=== PATIENT | female | born 1955 | race Caucasian/White ===

== ENCOUNTER → 2022-06-30 | Outpatient (CLI) | payer MEDICARE, OTHER, SELFPAY ==
[2022-07-03 10:54] LABS: HPV APTIMA, High Risk Negative (Negative)
== END | disposition home or self-care (01) ==
LOC: LABSPEC 11:14
PROVIDERS: Visit Provider Obstetrics & Gynecology
DX: Z12.4 Encounter for screening for malignant neoplasm of cervix (principal)
CPT/HCPCS: 87624; 88175; G0145

== ENCOUNTER → 2022-07-02 | Outpatient (CLI) | payer MEDICARE, OTHER, SELFPAY ==
--- NOTE | 2022-07-02 14:39 | BI_ITS ---
MAMMOGRAPHY - BILATERAL SCREENING REASON FOR EXAM: Female, 67 years old. Routine annual screening examination. PERTINENT HISTORY: Right excisional biopsy 10-15 years prior. No other pertinent history. TECHNIQUE: Digital bilateral breast abiodun (3D mammographic acquisition) in the CC and MLO projections. 2-D mediolateral oblique (MLO) and craniocaudad (CC) views of both breasts were obtained. CAD: Full Field Digital Mammography with Computer Added Detection was performed. COMPARISON: Screening mammogram from outside hospital from 02/16/2019, 01/26/2017. FINDINGS: Breast Composition: There are scattered areas of fibroglandular density. There are no dominant masses or suspicious calcifications. No other significant abnormalities are identified. There has been no significant change since the prior study. BI/SCRN MAMM (CAD)W/ABIODUN BILAT IMPRESSION: Stable bilateral screening mammogram. Yearly follow-up mammogram recommended. (A) ASSESSMENT CATEGORY: BIRADS Category 1: Negative. A letter regarding these results will be sent to the patient by the facility within 30 days. Approximately 10% of breast cancers are not detected by mammography. A normal mammogram should not delay biopsy of a clinically suspicious abnormality. Electronically Signed: Ugo Brown, at 9:15 EDT ,
--- NOTE | 2022-07-02 15:00 | BD_ITS ---
STUDY: DUAL ENERGY X-RAY ABSORPTIOMETRY / DXA REASON FOR EXAM: Female, 67 years old. Estrogen deficiency TECHNIQUE: Bone Mineral Density (BMD) measurements of lumbar spine and bilateral hips were obtained. COMPARISON: None. FINDINGS: Lumbar Spine (L1-L4): g/cm2 (1.148) / T-score (0.9) / Z-score (2.8) Findings are suggestive of normal bone density with a low fracture risk. Left Femur Total: g/cm2 (1.069) / T-score (1.0) / Z-score (2.4) Left Femoral Neck: g/cm2 (0.841) / T-score (-0.1) / Z-score (1.6) Right Femur Total: g/cm2 (1.133) / T-score (1.6) / Z-score (2.9) Right Femoral Neck: g/cm2 (0.946) / T-score (0.9) / Z-score (2.5) BD/Dexa Bone Density Study IMPRESSION: The patient is considered normal as outlined below according to World Mark Organization (WHO) criteria with a low fracture risk. Reference Information: The T-score is the number of standard deviations above or below the standard which is normal for young adults at their peak bone mineral density. The World Health Organization (WHO) interprets the T-scores as follows: Above -1 Normal bone density Between -1 and -2.5 Osteopenia Equal to / or below -2.5 Osteoporosis As a practical clinical guideline, osteopenia may be graded as follows: Mild -1 through -1.5 Moderate -1.6 through -2.0 Severe -2.1 through -2.4 The Z-score is the number of standard deviations above or below age-matched controls. A Z-score of less than -1.5 would be considered abnormal. References: 1. NIH Osteoporosis and Related Bone Diseases www osteo.org 2. International Society for Clinical Densitometry www iscd.org 3. National Osteoporosis Foundation www nof.org Electronically Signed: Cesar Oakley MD at 17:49 EDT ,
== END | disposition home or self-care (01) ==
LOC: OPBD 14:38
PROVIDERS: Visit Provider Obstetrics & Gynecology
DX: Z12.31 Encounter for screening mammogram for malignant neoplasm of breast (principal); E28.39 Other primary ovarian failure
CPT/HCPCS: 77063; 77067; 77080

== ENCOUNTER → 2023-07-08 | Outpatient (CLI) | payer MEDICARE, OTHER, SELFPAY | END | disposition home or self-care (01) | LOC: LABSPEC 13:27 | PROVIDERS: Referring Provider Obstetrics & Gynecology; Visit Provider Obstetrics & Gynecology | DX: R30.0 Dysuria (principal) | CPT/HCPCS: 87086 ==

== ENCOUNTER → 2023-07-12 | Outpatient (CLI) | payer MEDICARE, OTHER, SELFPAY ==
--- NOTE | 2023-07-12 09:51 | BI_ITS ---
MAMMOGRAPHY - BILATERAL SCREENING REASON FOR EXAM: Female, 68 years old. Routine annual screening examination. PERTINENT HISTORY: Right excisional biopsy 10-15 years prior. No other pertinent history. TECHNIQUE: Digital bilateral breast abiodun (3D mammographic acquisition) in the CC and MLO projections. 2-D mediolateral oblique (MLO) and craniocaudad (CC) views of both breasts were obtained. CAD: Full Field Digital Mammography with Computer Added Detection was performed. COMPARISON: Screening mammogram from 10/11/2022. FINDINGS: Breast Composition: There are scattered areas of fibroglandular density. There are no dominant masses or suspicious calcifications. No other significant abnormalities are identified. There has been no significant change since the prior study. BI/SCRN MAMM (CAD)W/ABIODUN BILAT IMPRESSION: Stable bilateral screening mammogram. Yearly follow-up mammogram recommended. (A) ASSESSMENT CATEGORY: BIRADS Category 1: Negative. A letter regarding these results will be sent to the patient by the facility within 30 days. Approximately 10% of breast cancers are not detected by mammography. A normal mammogram should not delay biopsy of a clinically suspicious abnormality. Electronically Signed: Ugo Brown DO at 12:02 EDT ,
== END | disposition home or self-care (01) ==
LOC: OPBI 09:47
PROVIDERS: PCP Family Medicine; Referring Provider Obstetrics & Gynecology; Visit Provider Obstetrics & Gynecology
DX: Z12.31 Encounter for screening mammogram for malignant neoplasm of breast (principal)
CPT/HCPCS: 77063; 77067

== ENCOUNTER → 2024-06-01 | Outpatient (CLI) | payer MEDICARE, OTHER, SELFPAY ==
[2024-06-01 10:03] LABS: Absolute Lymphocyte Count 2.97 X10^3/uL (0.83-4.51); Basophil% 1.3 % (0-1); Eosinophil# 0.17 X10^3/uL; Eosinophils% 2.2 % (0-5); Hematocrit 42.4 % (37-47); Hemoglobin 13.9 g/dL (12.0-15.0); Lymphocyte # 2.97 X10^3/ul (0.83-4.51); Lymphocyte % 38.1 % (19-41); Mean Corp Hgb Conc 32.8 g/dL (32-36); Mean Corpuscular Hgb 27.4 pg (27.0-32.0); Mean Corpuscular Volume 83.5 fL (81-99); Mean Platelet Vol. 12.5 fl (6.2-12.0); Monocyte# 0.57 X10^3/uL; Monocyte% 7.3 % (0-10); NRBC Flagged by Analyzer 0 % (0-5); Neutrophil # 3.96 X10^3/uL (2.7-7.7); Neutrophil % 50.7 % (47-70); Platelet Count 172 K/mm3 (150-450); RBC Distribution Width CV 14.2 % (11.6-14.6); RBC Distribution Width SD 43.2 fl (35.1-43.9); Red Blood Count 5.08 M/mm3 (4.2-5.4); White Blood Count 7.8 K/mm3 (4.4-11.0)
[2024-06-01 10:19] LABS: Vitamin D,25 Hydroxy 45.6 ng/mL
[2024-06-01 10:25] LABS: ALB/GLOB Ratio 0.9 RATIO (0.9-2.4); AST(SGOT) 13 U/L (15-37); Alanine Aminotransfer ALT/SGPT 17 U/L (13-56); Albumin, Serum 3.7 g/dL (3.2-5.0); Alkaline Phosphatase 69 U/L (45-117); Anion Gap 6 (5-15); BUN 20 mg/dL (7-18); BUN/Creat Ratio 26.8 RATIO (10-20); Calcium,Total 8.6 mg/dL (8.5-10.1); Chloride 108 mmol/L (98-107); Cholesterol 163 mg/dL (200); Creatinine, Serum 0.74 mg/dL (0.55-1.02); EST Glomerular Filtration Rate 82 mL/min (>60); Est Glom Filt Rate - Afr Amer 99 mL/min (>60); Globulin 3.9 g/dL (2.2-4.2); Glucose 105 mg/dL (74-106); High Density Lipoprotein 49 mg/dL; Potassium 4.1 mmol/L (3.5-5.1); Protein, Total 7.6 g/dL (6.4-8.2); Sodium Level 136 mmol/L (136-145); Thyroid Stim Hormone (TSH) 2.38 uIU/mL (0.358-3.74); Triglycerides 122 mg/dL; Very Low Density Lipoprotein 24 mg/dL (5-40)
== END | disposition home or self-care (01) ==
LOC: MFPLAB 08:02
PROVIDERS: PCP Family Medicine; Visit Provider Family Medicine
DX: I48.91 Unspecified atrial fibrillation (principal); Z78.0 Asymptomatic menopausal state
CPT/HCPCS: 36415; 80053; 80061; 82306; 84443; 85025

== ENCOUNTER → 2024-07-17 | Outpatient (CLI) | payer MEDICARE, OTHER, SELFPAY ==
--- NOTE | 2024-07-17 07:58 | BI_ITS ---
MAMMOGRAPHY - BILATERAL SCREENING REASON FOR EXAM: Female, 69 years old. Routine annual screening examination. PERTINENT HISTORY: Non-contributory. Remote right excisional breast biopsy. TECHNIQUE: Digital bilateral breast abiodun (3D mammographic acquisition) in the CC and MLO projections. 2-D mediolateral oblique (MLO) and craniocaudad (CC) views of both breasts were obtained. CAD: Full Field Digital Mammography with Computer Added Detection was performed. COMPARISON: Comparison is made with prior study July 12, 2023 and July 02, 2022. FINDINGS: Breast Composition: There are scattered areas of fibroglandular density. There are no dominant masses or suspicious calcifications. No other significant abnormalities are identified. There has been no significant change since the prior study. BI/SCRN MAMM (CAD)W/ABIODUN BILAT IMPRESSION: Stable bilateral screening mammogram. Yearly follow-up mammogram recommended. (A) ASSESSMENT CATEGORY: BIRADS Category 1: Negative. A letter regarding these results will be sent to the patient by the facility within 30 days. Approximately 10% of breast cancers are not detected by mammography. A normal mammogram should not delay biopsy of a clinically suspicious abnormality. [id number] Electronically Signed: Cesar Oakley MD at 8:54 EDT ,
--- NOTE | 2024-07-17 07:58 | US_ITS ---
INDICATION: bleeding EXAMINATION: Ultrasound US Pelvis Non OB Complete With Transvaginal Imaging COMPARISON: None. FINDINGS: 144 grayscale ultrasound images of the pelvis obtained both transabdominally and transvaginally. In addition dedicated ovarian color Doppler and Doppler waveform interrogation was performed. UTERUS: Uterus measures : 8.4 x 4.1 x 3.3 cm. Heterogeneous mixed solid and cystic-appearing endometrial thickening of 1.1 cm. Myometrium is unremarkable. ADNEXA: Flow is documented to bilateral ovaries by color Doppler as well as Doppler waveform. Bilateral ovarian septated multiloculated cystic structures, measuring up to 4.5 cm on the right. No significant free fluid. Adequately distended urinary bladder is without obvious abnormality. US/Pelvic w/ Transvaginal IMPRESSION: Heterogeneous mixed solid and cystic-appearing endometrial thickening in this postmenopausal patient. Malignancy is not excluded. Bilateral ovarian septated multiloculated cystic lesions, measuring up to 4.5 cm on the right, concerning for cystic neoplastic process. These findings may be better characterized by dedicated pelvic MRI. Electronically Signed: Christiano Ashraf MD at 1:23 EDT ,
== END | disposition home or self-care (01) ==
LOC: OPBI 07:57
PROVIDERS: PCP Family Medicine; Referring Provider Nurse Practitioner Women's Health; Visit Provider Nurse Practitioner Women's Health
DX: Z12.31 Encounter for screening mammogram for malignant neoplasm of breast (principal); N95.0 Postmenopausal bleeding
CPT/HCPCS: 76830; 76856; 77063; 77067

== ENCOUNTER → 2024-11-30 | Outpatient (CLI) | payer MEDICARE, OTHER, SELFPAY ==
--- NOTE | 2024-11-30 11:00 | RAD_ITS ---
STUDY: X-RAY - LEFT SHOULDER REASON FOR EXAM: Female, 69 years old. Left shoulder pain. TECHNIQUE: 4 views of the left shoulder. COMPARISON: None. FINDINGS: There is mild glenohumeral arthrosis with marginal osteophyte formation. Normal acromioclavicular joint. Normal acromion. Intact humeral head and visualized proximal humerus. The soft tissue structures are unremarkable. There is no demonstrated fracture. Normal visualized pulmonary apex. RAD/Shoulder min 2 Views IMPRESSION: Mild glenohumeral arthrosis. No demonstrated fracture. Electronically Signed: Stephen Cochran MD at 9:38 EST ,
== END | disposition home or self-care (01) ==
LOC: MTRAD 10:55
PROVIDERS: PCP Family Medicine; Referring Provider Family Medicine; Visit Provider Family Medicine
DX: M25.519 Pain in unspecified shoulder (principal)
CPT/HCPCS: 73030

== ENCOUNTER → 2025-10-22 | Outpatient (CLI) | payer MEDICARE, OTHER, SELFPAY ==
--- NOTE | 2025-10-22 10:15 | BI_ITS ---
EXAM: SCRN MAMM (CAD)W/ABIODUN BILAT DATE: 10/22/2025 CLINICAL HISTORY: F, Age 70 y/o , BREAST CANCER SCREENING TECHNIQUE: Procedure Code: [id number] Modality: MG Procedure: SCRN MAMM (CAD)W/ABIODUN BILAT COMPARISON: Prior exam(s) dated 07/17/2024, 07/12/2023, and 07/02/2022. FINDINGS: TISSUE DENSITY: There are scattered areas of fibroglandular density. Bilateral Breast Mammographic Findings: There are no suspicious masses, suspicious clustered microcalcifications, architectural distortion or secondary signs of malignancy identified in either breast. Round microcalcifications are seen in both breasts. A stable, 3 mm, benign-appearing, well-circumscribed, isodense mass in the superior medial, far posterior aspect of the right breast is noted. BI/SCRN MAMM (CAD)W/ABIODUN BILAT IMPRESSION: Benign screening mammogram OVERALL FINAL ASSESSMENT BI-RADS 2: BENIGN RECOMMENDATION: Routine annual follow-up in 1 Year Additional Recommendation none A letter with findings and recommendations will be mailed to the patient. Reading Location: [id number]
== END | disposition home or self-care (01) ==
LOC: OPBI 09:51
PROVIDERS: PCP Family Medicine; Referring Provider Nurse Practitioner Women's Health; Visit Provider Nurse Practitioner Women's Health
DX: Z12.31 Encounter for screening mammogram for malignant neoplasm of breast (principal)
CPT/HCPCS: 77063; 77067